=== PATIENT | female | born 1985 | race Caucasian/White ===

== ENCOUNTER → 2020-11-19 12:35 | Outpatient (CLI) | payer OTHER, SELFPAY ==
--- NOTE | 2020-11-19 12:37 | DI.RAD.S_ITS ---
PROCEDURE: HL HYSTEROSAPINGOGRAPHY INDICATIONS: Infertility COMPARISON: None. FINDINGS: Patient had a documented negative test prior to the study. Following speculum insertion, a balloon-tip catheter was inserted into the cervical canal, and secured by inflating the balloon. Contrast was then injected into the endometrial canal. Uterus: The uterine cavity appears normal in size and morphology, without synechiae or masses. Fallopian tubes: Both fallopian tubes fill with contrast, and appear normal in caliber and morphology. There is ready dispersion of contrast into the peritoneal cavity from the right fallopian tube. There is a small amount of eventual dispersion of contrast into the peritoneal cavity from the left fallopian tube. IMPRESSION: Fallopian tubes appear patent bilaterally as above. Dictated by: Braxton Mart M.D. on 11/19/2020 at 15:30 Approved by: Braxton Mart M.D. on 11/19/2020 at 15:32
--- NOTE | 2020-12-04 16:04 | PM.PROC.1 ---
Procedures Date/Time Date of procedure: 11/19/20 Time of procedure: 13:15 General Procedure description: Hysterosalpingogram After informed consent was obtained, the patient was placed on an overturned bedpan covered with a checks. An open-sided speculum was placed into the vagina. The cervix was cleaned x3 with Betadine. A single-tooth tenaculum was placed on the anterior lip of the cervix. The HSG catheter passed easily into the endometrial cavity and the balloon was inflated with 3 cc of air. Using Optiray 300, approximately 18 cc were injected under direct fluoroscopic examination. The contours of the uterus were normal. There was spill from both fallopian tubes. The Optiray 300 was aspirated from the uterus. The balloon was deflated and the HSG catheter was removed from the uterus. The single-tooth tenaculum was removed from the anterior lip of the cervix. The open sided speculum was removed from the vagina. The patient was taken off of the bed lopez. Sponge, lap, and instrument counts were correct x2. The patient tolerated the procedure well. Complications: none
== END ==
PROVIDERS: PCP Naturopath; Referring Provider Obstetrics & Gynecology; Visit Provider Obstetrics & Gynecology
DX: N97.9 Female infertility, unspecified (principal)
CPT/HCPCS: 58340; 74740

== ENCOUNTER → 2021-11-26 10:13 | Outpatient (CLI) | payer OTHER, SELFPAY ==
[2021-11-26 11:05] LABS: Add Manual Diff / Slide Review NO; Basophils Absolute Auto 0 /uL (0-100); Basophils Percent Auto 0.3 % (0-2); Eosinophils Absolute Auto 0 /uL (0-450); Eosinophils Percent Auto 0.3 % (2-4); Hematocrit 39.2 % (36-46); Hemoglobin 13.4 g/dL (12.0-16.0); Lymphocytes Absolute Auto 1900 /uL (1100-4500); Lymphocytes Percent Auto 27.3 % (25-40); Mean Corpuscular HGB Conc 34.2 % (30-36); Mean Corpuscular Hemoglobin 28.9 PG (26-34); Mean Corpuscular Volume 84.5 fL (80-100); Monocytes Absolute Auto 500 /uL (0-900); Monocytes Percent Auto 6.4 % (3-14); Neutrophils Absolute Auto 4600 /uL (1500-7000); Neutrophils Percent Auto 65.7 % (50-75); Platelet Count 211 X10^3/uL (150-400); Red Blood Cell Count 4.64 X10^6/uL (4.0-5.2); Red Cell Distribution Width 13.6 % (11.6-14.8)
[2021-11-26 11:13] LABS: Appearance Urine UA CLEAR; Bilirubin Urine UA NEGATIVE (NEGATIVE); Color Urine UA YELLOW; Glucose Urine UA NEGATIVE (Negative); Ketones Urine UA NEGATIVE (NEGATIVE); Leukocyte Esterase Urine UA NEGATIVE (NEGATIVE); Nitrite Urine UA NEGATIVE (Negative); Occult Blood Urine UA NEGATIVE (Negative); Protein Urine UA NEGATIVE (Negative); Urobilinogen Urine UA 0.2 E.U./dL (0.2)
[2021-11-26 11:37] LABS: pH Urine UA 7.5 (4.5-8.0)
[2021-11-27 10:28] LABS: RPR Screen Non Reactive (Non Reactive)
[2021-11-28 08:24] LABS: Varicella IgG Antibody 618 index (Immune >165)
[2021-11-29 16:54] LABS: Hepatitis B Surface Antigen NEGATIVE s/c (NEGATIVE); Rubella Antibody IgG 63.5 IU/mL (>15)
[2021-11-29 17:09] LABS: HIV 1 & 2 Ab/Ag 4th Gen Combo NEGATIVE (NEGATIVE); Hep C Virus Ab w/Reflex Quant NEGATIVE s/c (NEGATIVE)
== END ==
PROVIDERS: PCP Naturopath; Referring Provider Obstetrics & Gynecology; Visit Provider Obstetrics & Gynecology
DX: O09.511 Supervision of elderly primigravida, first trimester (principal)
CPT/HCPCS: 36415; 80055; 81003; 86787; 86803; 86850; 86900; 86901; 87086; 87389

== ENCOUNTER → 2021-12-22 16:53 | Outpatient (CLI) | payer OTHER, SELFPAY ==
[2021-12-23 00:23] LABS: Urine N gonorrhoeae NOT DETECTED
[2021-12-23 00:28] LABS: Urine Chlamydia NOT DETECTED
== END ==
PROVIDERS: PCP Naturopath; Visit Provider Obstetrics & Gynecology
DX: Z34.81 Encounter for supervision of other normal pregnancy, first trimester (principal); Z3A.13 13 weeks gestation of pregnancy
CPT/HCPCS: 87491; 87591

== ENCOUNTER → 2022-01-17 16:42 | Outpatient (CLI) | payer OTHER, SELFPAY ==
[2022-01-18 20:35] LABS: AFP Value 27.1 ng/mL (.); Gest Age on Col Date 17.4 weeks (.); Insulin Dep Diabetes No (.); OSBR Risk 1IN 10000 (.); Results Report (.); Test Results *Screen Negative* (.)
== END ==
PROVIDERS: PCP Naturopath; Referring Provider Obstetrics & Gynecology; Visit Provider Obstetrics & Gynecology
DX: Z34.82 Encounter for supervision of other normal pregnancy, second trimester (principal); Z3A.17 17 weeks gestation of pregnancy
CPT/HCPCS: 36415; 82105

== ENCOUNTER → 2022-02-07 15:00 | Outpatient (CLI) | payer OTHER, SELFPAY ==
--- NOTE | 2022-02-07 15:01 | DI.US.S_ITS ---
PROCEDURE: US OB >= 14 WEEKS FETUS INDICATIONS: ANATOMY OUTSIDE/PRIOR DATING DATA: Last menstrual period (LMP): 09/17/2021 LMP-based estimated date of delivery (JASMINA): 06/24/2022. First dating scan (date and location): 11/22/2021. Estimated date of delivery (JASMINA) from first dating scan: 06/24/2022. TECHNIQUE: Real-time scanning was performed of the fetus, with image documentation and biometric measurements. COMPARISON: [facility], , OB <= 14 WEEKS FETUS, 11/22/2021, 15:02. [facility], , OB <= 14 WEEKS FETUS, 12/22/2021, 16:29. FINDINGS: General: A single living intrauterine gestation is present. Presentation: Variable. Placenta: Placental position is anterior , without previa. Amniotic fluid index: 20 cm, normal range is 5-24 cm. Single deepest vertical pocket is 6.2 cm. heart rate: 157 beats per minute. Maternal cervical canal: 3.4 cm long. Normal lower limit is 2.5 cm. biometrics: Biparietal diameter: 21 weeks 1 day Head circumference: 20 weeks 0 days Abdominal circumference: 21 weeks 0 days Femur length: 21 weeks 0 days Clinically estimated gestational age: 20 weeks 3 days Composite gestational age from present scan: 20 weeks 6 days Estimated weight and percentile: 385 g; 70 second percentile. Anatomic survey: Neuro: Ventricles are non-dilated at less than 10 mm. Cisterna magna is normal at 3-11 mm. Cerebellum is normal in size and morphology. Nuchal skin fold: Normal at less than 6 mm between 14-21 weeks gestational age. Face: Nose and lips, facial profile are normal. Spine: No evidence for spina bifida. Heart: 4-chambered heart is present, with normal ventricular outflow tracts. Diaphragm: Diaphragm is intact. Stomach: Left-sided stomach is present. Kidneys: Mild bilateral renal pyelectasis with the renal pelvis measuring 4.2 mm. Cord: 3-vessel cord has orthotopic insertion. Bladder: Normal in size. Extremities: All 4 extremities identified. Intramural maternal fibroid measuring 1.9 cm. IMPRESSION: 1. Single living IUP redemonstrated and interval growth is normal. 2. Mild bilateral renal pelviectasis; otherwise normal anatomic survey. Short-term follow-up ultrasound recommended. 2. Small maternal intramural fibroid. We strive to produce accurate, complete, and clear reports of imaging services. To assist us in improving patient care, this report was composed using standard report templates and voice recognition software. Therefore, it may contain abnormal punctuation, insertions and/or omissions. Occasional wrong-word or sound-alike substitutions may occur. Though we review the report and make efforts to correct it, we do recommend that the report be read carefully in proper context to recognize any text inaccuracies. Dictated by: Darren HENNESSY Interpreted: Tootie Connolly MD on 02/08/2022 at 17:01 Transcribed by: LUIS F on 02/08/2022 at 17:03 Approved by: Tootie Connolly M.D. on 02/08/2022 at 17:28
== END ==
PROVIDERS: PCP Naturopath; Referring Provider Obstetrics & Gynecology; Visit Provider Obstetrics & Gynecology
DX: Z34.02 Encounter for supervision of normal first pregnancy, second trimester (principal); Z3A.20 20 weeks gestation of pregnancy; D25.1 Intramural leiomyoma of uterus
CPT/HCPCS: 76811

== ENCOUNTER → 2022-03-08 16:45 | Outpatient (CLI) | payer OTHER, SELFPAY ==
--- NOTE | 2022-03-08 16:46 | DI.US.S_ITS ---
PROCEDURE: US OB FOLLOW UP INDICATIONS: FU mild bilateral renal pelviectasis OUTSIDE/PRIOR DATING DATA: Last menstrual period (LMP): 09/17/2021. LMP-based estimated date of delivery (JASMINA): 06/24/2022. First dating scan (date and location): 11/22/2021. Estimated date of delivery (JASMINA) from first dating scan: 06/24/2022. The calculations are made using the ultrasound JASMINA of 06/24/2022. TECHNIQUE: Real-time scanning was performed of the fetus, with image documentation and biometric measurements. COMPARISON: [facility], , US OB >= 14 WEEKS FETUS, 02/07/2022, 15:42. [facility], , US OB <= 14 WEEKS FETUS, 12/22/2021, 16:29. [facility], , US OB <= 14 WEEKS FETUS, 11/22/2021, 15:02. FINDINGS: General: A single living intrauterine gestation is present. Presentation: Breech. Placenta: Placental position is anterior , without previa. Amniotic fluid index: 20.8 cm, normal range is 5-24 cm. Single deepest vertical pocket is 7.2 cm. heart rate: 153 beats per minute. Maternal cervical canal: 4.3 cm long. Normal lower limit is 2.5 cm. biometrics: Composite gestational age from present scan: 24 weeks 4 days Other: Previous appearance of pelvocaliectasis is not visualized. IMPRESSION: Single live intrauterine with ultrasound gestational age of 24 weeks 4 days. Previous pelvocaliectasis is not visualized. We strive to produce accurate, complete, and clear reports of imaging services. To assist us in improving patient care, this report was composed using standard report templates and voice recognition software. Therefore, it may contain abnormal punctuation, insertions and/or omissions. Occasional wrong-word or sound-alike substitutions may occur. Though we review the report and make efforts to correct it, we do recommend that the report be read carefully in proper context to recognize any text inaccuracies. Dictated by: Tootie Connolly M.D. on 03/09/2022 at 7:08 Approved by: Tootie Connolly M.D. on 03/09/2022 at 7:09
== END ==
PROVIDERS: PCP Naturopath; Referring Provider Obstetrics & Gynecology; Visit Provider Obstetrics & Gynecology
DX: O35.8XX0 Maternal care for other (suspected) fetal abnormality and damage, not applicable or unspecified (principal); Z3A.24 24 weeks gestation of pregnancy
CPT/HCPCS: 76816

== ENCOUNTER → 2022-06-06 09:15 | Outpatient (CLI) | payer BC, SELFPAY ==
[2022-06-07 11:43] LABS: Strep Grp B PCR NEG for Grp B Strep
== END ==
PROVIDERS: PCP Naturopath; Visit Provider Obstetrics & Gynecology
DX: Z34.03 Encounter for supervision of normal first pregnancy, third trimester (principal); Z3A.37 37 weeks gestation of pregnancy
CPT/HCPCS: 87653

== ENCOUNTER 2022-06-18 17:37 | Observation (INO) | payer BC, SELFPAY ==
[2022-06-18 18:33] LABS: Add Manual Diff / Slide Review NO; Basophils Absolute Auto 0 /uL (0-100); Basophils Percent Auto 0.3 % (0-2); Eosinophils Absolute Auto 0 /uL (0-450); Eosinophils Percent Auto 0.3 % (2-4); Hematocrit 41.4 % (36-46); Hemoglobin 13.6 g/dL (12.0-16.0); Lymphocytes Absolute Auto 2100 /uL (1100-4500); Lymphocytes Percent Auto 20.9 % (25-40); Mean Corpuscular HGB Conc 32.9 % (30-36); Mean Corpuscular Hemoglobin 27.8 PG (26-34); Mean Corpuscular Volume 84.3 fL (80-100); Monocytes Absolute Auto 500 /uL (0-900); Monocytes Percent Auto 5.1 % (3-14); Neutrophils Absolute Auto 7500 /uL (1500-7000); Neutrophils Percent Auto 73.4 % (50-75); Platelet Count 217 X10^3/uL (150-400); Red Blood Cell Count 4.91 X10^6/uL (4.0-5.2); Red Cell Distribution Width 16.1 % (11.6-14.8); White Blood Cell Count 10.2 X10^3/uL (4.5-11.0)
[2022-06-18 18:45] LABS: COVID19 -Nasal RAPID Negative (Negative)
[2022-06-18] MEDS: DINOPROSTONE VAG (CERVIDIL) 10 MG VAG (18:54)
[2022-06-18 19:23] VITALS: BP 113/66
[2022-06-19] MEDS: OXYTOCIN PREMIX 30 UNIT/500 ML PLAST..BAG IV (09:45)
[2022-06-19] MEDS: LACTATED RINGERS 1,000 ML 100 ML IV (09:45)
[2022-06-19] MEDS: miSOPROStoL 100 MCG TABLET 25 MCG PO (20:43)
[2022-06-20] MEDS: miSOPROStoL 100 MCG TABLET 25 MCG PO (00:39)
== END 2022-06-20 08:52 | disposition home or self-care (01) ==
PROVIDERS: Admitting Provider Obstetrics & Gynecology; PCP Naturopath; Referring Provider Obstetrics & Gynecology; Visit Provider Obstetrics & Gynecology
DX: O47.1 False labor at or after 37 completed weeks of gestation (principal); O09.513 Supervision of elderly primigravida, third trimester; Z3A.39 39 weeks gestation of pregnancy; Z20.822 Contact with and (suspected) exposure to COVID-19
CPT/HCPCS: 36415; 85025; 86850; 86900; 86901; 87635; C9803; G0378; G0379; J2590

== ENCOUNTER 2022-06-23 02:54 | Observation (INO) | payer BC, OTHER, SELFPAY ==
[2022-06-23] MEDS: MORPHINE 10 MG/ML INJ IM (08:12)
[2022-06-23] MEDS: hydrOXYzine 50 MG/ML INJ 25 MG IM (08:13)
== END 2022-06-23 15:55 | disposition home or self-care (01) ==
PROVIDERS: Admitting Provider Obstetrics & Gynecology; PCP Naturopath; Referring Provider Obstetrics & Gynecology; Visit Provider Obstetrics & Gynecology
DX: O47.1 False labor at or after 37 completed weeks of gestation (principal); Z3A.39 39 weeks gestation of pregnancy
CPT/HCPCS: 59025; 59050; 96372; G0378; G0379; J2270; J3410

== ENCOUNTER 2022-06-24 09:23 | Inpatient (IN) | payer BC, SELFPAY ==
[2022-06-24] MEDS: LACTATED RINGERS 1,000 ML 100 ML IV ×5 (10:10→23:15)
[2022-06-24 10:31] VITALS: BP 133/84
[2022-06-24 10:34] LABS: Add Manual Diff / Slide Review NO; Basophils Absolute Auto 100 /uL (0-100); Basophils Percent Auto 0.5 % (0-2); Eosinophils Absolute Auto 0 /uL (0-450); Eosinophils Percent Auto 0.1 % (2-4); Hematocrit 41.7 % (36-46); Hemoglobin 13.8 g/dL (12.0-16.0); Lymphocytes Absolute Auto 1300 /uL (1100-4500); Lymphocytes Percent Auto 11.5 % (25-40); Mean Corpuscular HGB Conc 33.1 % (30-36); Mean Corpuscular Hemoglobin 27.9 PG (26-34); Monocytes Absolute Auto 300 /uL (0-900); Monocytes Percent Auto 2.6 % (3-14); Neutrophils Absolute Auto 10000 /uL (1500-7000); Neutrophils Percent Auto 85.3 % (50-75); Platelet Count 219 X10^3/uL (150-400); Red Blood Cell Count 4.96 X10^6/uL (4.0-5.2); Red Cell Distribution Width 15.6 % (11.6-14.8); White Blood Cell Count 11.7 X10^3/uL (4.5-11.0)
[2022-06-24] MEDS: fentaNYL 100 MCG/2 ML INJ IV (10:39)
[2022-06-24] MEDS: FENT 2MCG/ML BUPIV 0.125% EPI 200 MCG/100 ML PLAST..BAG 6 MCG EPIDURAL (11:13)
[2022-06-24] MEDS: OXYTOCIN PREMIX 30 UNIT/500 ML PLAST..BAG 200 UNIT IV (14:37)
--- NOTE | 2022-06-24 15:00 | PM.OBHP.IH.1 ---
OB HPI Date/Time Date of admission: 06/24/22 Date Patient Seen: 06/24/22 Time Patient Seen: 11:40 History of Present Condition Chief complaint: Observation JASMINA Calculator Estimated Delivery Date Method Current WG Current Estimate 06/24/22 LMP (Certain) 40w 0d Other Estimates 06/24/22 Ultrasound #1 40w 0d Estimated Gestational Age (weeks): 40 : 1 Para: 0 Narrative: Induced 06/18-06/20 but unsuccessful. Went home. Saw in office 06/22. Planned induction 06/26. Pt presented in active labor this morning. care: good care, initiated at week # (9), number of visits (11) and pounds weight gain (21) Dating criteria OB: LMP confirmed by 1st trimester US Ultrasounds: normal 1st trimester US and normal mid trimester US Obstetrical complications: none Medical complications OB: none Narrative: AMA Preadmission Labs Last OB Lab Results: Blood Type O Positive 06/24/22 10:05 Antibody Screen Negative 06/24/22 10:05 Hematocrit 41.7 % (36-46) 06/24/22 10:05 Hemoglobin 13.8 g/dL (12.0-16.0) 06/24/22 10:05 Hepatitis B Surface Antigen Negative s/c (NEGATIVE) 11/26/21 10:25 Hepatitis C Antibody Negative s/c (NEGATIVE) 11/26/21 10:25 Rubella Antibody 63.5 IU/mL (>15) 11/26/21 10:25 Varicella-Zoster IgG Antibody 618 index (Immune >165) 11/26/21 10:25 Group B Streptococcus (PCR) Neg for grp b strep 06/06/22 09:15 -: Chlamydia screen: negative, Gonorrhea screen: negative and Urine: negative -: PAP smear: Normal External Labs -: Urine: negative Glucose Tolerance Testin hr (92) Evaluation Evaluation Baseline heart rate: 140 Variability: Moderate (11-25) monitor accelerations: Present Monitor Decelerations: Absent Contraction Frequency (minutes): 3 Uterine Contraction Intensity: Strong/Firm Status: Category l Dilation (cm): 7 Effacement (%): 100 station: -2 Position of cervix: anterior Consistency: soft [facility] Medical History (Updated 02/17/22 @ 05:52 by Cynthia Clancy MD) Infertility Surgical History (Updated 11/17/20 @ 12:11 by Cynthia Clancy MD) [place] teeth extracted Family History (Updated 10/27/21 @ 15:42 by Komal Méndez RN) Father Suicide Mother Skin cancer Rheumatoid arthritis Grandfather Cancer Grandmother Skin cancer Rheumatoid arthritis Grandfather Cancer Social History marital status: number of children: 0 household members: spouse lives independently: Yes housing: house pets and animals: Yes (1 cat) education level: college (Associate's degree) occupational status: employed current occupational exposures/hazards: No special bruna needs: No travel history: recent ([place] ([facility]) in September 2021) seatbelt use: always water heater temp set < 120 deg: No (Will check and adjust if needed ) working smoke detector in home: Yes fire extinguisher in home: Yes carbon monox detector in home: Yes firearms in home: Yes firearms unloaded and locked: Yes do you feel safe at home: Yes Smoking Status: Never smoker second hand exposure: No alcohol intake: former (Occasional social drinker when not ) substance use type: does not use during the past year weight has: remained stable well-balanced diet: daily or most days daily servings fruits/ve-4 caffeine: Yes (Aware of 200mg limit) Type(s) of exercise: walking and regular exercise Meds Home Medications and Allergies Home Medications Medication Instructions Recorded Confirmed Type cholecalciferol (vitamin D3) 50 50 mcg PO DAILY 10/27/21 06/24/22 History mcg (2,000 unit) capsule omega-3 fatty acids-fish oil 360 2 cap PO DAILY 10/27/21 06/24/22 History mg-1,200 mg capsule (Fish Oil) prenat.vits,natty,buv-tzxa-aiznj 1 tab PO DAILY 10/27/21 06/24/22 History Allergies Allergy/AdvReac Type Severity Reaction Status Date / Time No Known Drug Allergies Allergy Verified 06/22/22 16:16 OB Exam Narrative Exam Narrative: Generally: Patient lying in bed, comfortable with epidural Lungs: Clear to auscultation bilaterally Cardiovascular: Regular rate and rhythm Fundal height: 40 cm Estimated weight: 7 1/2 to 8 lbs Extremities: Trace edema Objective Labs 06/24/22 10:05 Labs: Laboratory Results - last 24 hr 06/24/22 06/24/22 10:05 10:05 WBC 11.7 H RBC 4.96 Hgb 13.8 Hct 41.7 MCV 84.0 MCH 27.9 MCHC 33.1 RDW 15.6 H Plt Count 219 Neut % (Auto) 85.3 H Lymph % (Auto) 11.5 L [place]ke[place] % (Auto) 2.6 L Eos % (Auto) 0.1 L Baso % (Auto) 0.5 Neut # (Auto) 45847 H Lymph # (Auto) 1300 [place] # (Auto) 300 Eos # (Auto) 0 Baso # (Auto) 100 Blood Type O Positive Antibody Screen Negative Assessment and Plan Assessment and Plan Assessment and Plan narrative: Assessment: 36-year-old 1 para 0 at 40 weeks gestation in active labor Plan: AROM with thin meconium-stained amniotic fluid Expected management to spontaneous vaginal delivery Pitocin as needed Time Spent with Patient Total time spent with greater than 50% in coordination of care (as documented) at patient's floor/unit and/or counseling patient:: 15-24 minutes
--- NOTE | 2022-06-24 15:07 | PM.OBPNLAB ---
Date/Time Date Patient Seen: 06/24/22 Time Patient Seen: 15:08 Pain Control Pain control: epidural Pelvic Exam Dilation (cm): 7 Effacement (%): 100 station: -1 (asynclitic) Amniotic membrane status: Ruptured Contractions Contractions on admission: regular Monitor mode: External Contraction frequency (min): 4 Contraction duration (min): 1 Contraction pattern: Regular Contraction intensity: Strong/Firm Status status: Category l Heart Rate Baseline: 145 Monitor Accelerations: Present Monitor Decelerations: Early Monitor Variability: Moderate Assessment and Plan Assessment: active labor Comments: Side to side with peanut ball Pitocin augmentation Expectant management to
--- NOTE | 2022-06-24 16:05 | PM.OBPNLAB ---
Date/Time Date Patient Seen: 06/24/22 Time Patient Seen: 16:06 Pain Control Pain control: epidural (feeling a lot of pressure) Pelvic Exam Dilation (cm): 6 Effacement (%): 100 station: 0 (asynclitic) Amniotic membrane status: Ruptured Contractions Contractions on admission: regular Monitor mode: External Pitocin rate (mU/min): 1 Contraction frequency (min): 3 Contraction duration (min): 1 Contraction pattern: Regular Contraction intensity: Strong/Firm Status status: Category l Heart Rate Baseline: 150 Monitor Accelerations: Present Monitor Decelerations: Absent Monitor Variability: Moderate Assessment and Plan Assessment: active labor Comments: Continue side to side with peanut ball Anesthesia to bolus epidural
--- NOTE | 2022-06-24 19:42 | PM.OBPNLAB ---
Date/Time Date Patient Seen: 06/24/22 Time Patient Seen: 19:42 Pain Control Pain control: epidural (Feeling pressure) Comments: Called due to maternal fever and tachycardia Pelvic Exam Dilation (cm): 9 Effacement (%): 100 station: -1 Amniotic membrane status: Ruptured Contractions Contractions on admission: regular Monitor mode: External Pitocin rate (mU/min): 3 Contraction frequency (min): 3 Contraction pattern: Regular Contraction intensity: Strong/Firm Status status: Category ll Heart Rate Baseline: 176 Monitor Accelerations: Present Monitor Decelerations: Early and Late (occ) Monitor Variability: Moderate Assessment and Plan Assessment: active labor and other (maternal fever and tachycardia) Comments: Primary section Discussed with patient and her that we could be 3-5 hours from delivery due to vertex still being high We discussed the risks of maternal fever and tachycardia The decision was made to proceed to primary low-transverse section. The risks, benefits, and alternatives to the procedure were explained to the patient. The risks including bleeding, infection, injury to the bowel, bladder, or ureters. She understands these risks and agrees to proceed. A full par Q was held and consent form was signed. Pediatrics notified OR crew called
--- NOTE | 2022-06-24 19:45 | PM.PREOP ---
Pre-operative Note COVID-19 Criteria for continued procedure: Non-surgical alternatives not available or appropriate per current SOC Interval Note History & Physical reviewed/Exam performed by Physician: Yes Changes to H&P: No H&P completed within 30 days and has changed as indicated here:: 06/24/22
[2022-06-24] MEDS: CEFAZOLIN 2 GM/100 ML PREMIX 100 ML IV (20:27)
--- NOTE | 2022-06-24 20:41 | SUR.OPER ---
Supine on Padded OR bed, head on pillow, safety belt at thigh, arms secured on padded arm boards at <90 degrees abduction. Bump under right buttock. Legs uncrossed with pillow under knees, gel pad to heels, tape over blanket to lower legs. pt positioned per direction and supervision of Dr Clancy.
--- NOTE | 2022-06-24 20:48 | SUR.OPER ---
viable baby girl delivered at 2046. placenta and cord blood given to OB RN.
--- NOTE | 2022-06-24 21:28 | P.OP_ITS ---
Operative Date/Time/Diagnoses Date of procedure: 06/24/22 Time of procedure: 21:28 Pre-op diagnosis: Forty weeks gestation Maternal fever in labor Vertex high, remote from delivery tachycardia Post-op diagnosis: same Procedure & Clinicians Procedure: Primary low-transverse section Same procedure as scheduled: Yes Indications: 40 weeks gestation Vertex high tachycardia Maternal fever in labor Remote from delivery Surgeon: Cynthia Bal Yes if Unassisted: No Mainframe Applications Developer: Nathalia Dsouza Reason for Mainframe Applications Developer: The administrative assistant office manager was necessary to retract upon entry into the abdomen and uterus. She assisted with fundal pressure for delivery of the . She assisted with closure of the uterus and abdomen with retraction and clipping of suture. She closed the contralateral fascia. Anesthesia Type: Epidural (With Duramorph) Operative Notes Findings: Live female in the direct occiput posterior presentation Normal uterus, tubes, and ovaries Closure Type: primary Specimen(s): cord blood and cord pH (7.217 ) Intraoperative meds administered: Duramorph, Ketorolac and Pitocin Applied: Catheter (To continuous drainage) Estimated Blood Loss (mL): 500 Blood products transfused: none Procedure in detail: The patient was taken to the operating room where she was placed in the dorsal supine position with a leftward tilt. She was prepped and draped in the usual sterile fashion. A timeout was performed. After epidural analgesia was found to be adequate, a Pfannenstiel skin incision was made 2 fingerbreadths above the pubic symphysis and carried through to the underlying layer fascia. The fascia was nicked in the midline, and the incision extended bilaterally with the Ellsworth scissors. The superior aspect of the fascial incision was grasped with a Adriana clamps, elevated, and the underlying rectus muscles dissected off sharply and bluntly. Attention was then turned to the inferior aspect of this incision which in a similar fashion was grasped with a Adriana clamps, elevated, and the underlying rectus muscles dissected off sharply and bluntly. The rectus muscles were in the midline. The peritoneum was identified, grasped between 2 hemostats, and entered sharply with the Metzenbaum scissors. This incision was extended superiorly and inferiorly with good visualization of the bladder. The bladder blade was inserted. The vesicouterine peritoneum was identified, grasped with the pickup, and entered sharply with the Metzenbaum scissors. This incision was extended bilaterally, and the bladder flap was created digitally. The bladder blade was reinserted. The lower uterine segment was incised in a transverse fashion with the scalpel. Upon entering the amniotic sac there was a small amount of lightly meconium stained amniotic fluid. The was found to be in the direct occiput posterior presentation. The 's head was delivered without difficulty. The nose and mouth were suctioned with bulb suction. The remainder of the body delivered without difficulty. The cord was double clamped and cut after 1 minute. A piece of cord for cord pH was o btained. The infant was handed off to waiting RN and RT. Pitocin was given in the IV fluids. The placenta was delivered by expression. The uterus was cleared of all clots and debris. The uterine incision was repaired with #1 chromic in a running interlocking fashion, and a second layer the same suture was used for an imbricating layer. Hemostasis was achieved. The tubes and ovaries were examined and were found to be normal. The gutters were cleared of all clots and debris. The bladder flap was reapproximated using 2-0 Vicryl in a running fashion. The parietal peritoneum was closed using 2-0 Vicryl in a running fashion. The fascia was reapproximated using 0 Vicryl in a running fashion. The subcutaneous layer was copiously irrigated with warm normal saline. 5 simple interrupted sutures of 3-0 Vicryl were placed to reapproximate the subcutaneous layer. The skin was closed with 4-0 Monocryl in a subcuticular fashion. Steri-Strips were placed. An Aquacel dressing was placed. The uterus was expressed of a small amount of old blood. Sponge, lap, and instrument counts were correct x-2. The patient tolerated the procedure well, and was taken to PACU in stable condition. Complications: none Baby 1: Gender: Female Presentation: vertex Position: Occiput Posterior Placental Delivery Description: Expressed Cord Vessel Description: 3 Vessels and Clamped/Cut (After 1 minute) score (1 min): 8 score (5 min): 9 weight: 7 lb 15.1 oz Post-operative Condition: stable Disposition: PACU Aftercare: routine postop
[2022-06-24 21:30] VITALS: BP 125/47; PULSE 81; RESP 16; TEMP 36.9; O2SAT 98
[2022-06-24 21:35] VITALS: BP 130/67; PULSE 83; RESP 20; O2SAT 96
--- NOTE | 2022-06-24 21:37 | SUR.PHASEI ---
Received to PACU after spinal anesthesia. Report from Dr Wood and PATRICIA Lynn.
[2022-06-24 21:39] VITALS: BP 119/65; PULSE 86; RESP 18; O2SAT 97
[2022-06-24 21:45] VITALS: BP 114/64; PULSE 97; RESP 16; O2SAT 96
--- NOTE | 2022-06-24 21:52 | SUR.PHASEI ---
Report called to PATRICIA Michele. Transported to OB by PATRICIA Lynn and AMI James.
[2022-06-24 23:55] VITALS: TEMP 37.3
[2022-06-24] MEDS: ACETAMINOPHEN 325 MG TABLET 650 MG PO (23:55)
[2022-06-25 03:28] VITALS: TEMP 37.1
[2022-06-25] MEDS: KETOROLAC 30 MG/ML VIAL IV (03:28)
[2022-06-25 05:17] VITALS: TEMP 36.9
[2022-06-25] MEDS: OXYCODONE IR 5 MG TABLET PO ×4 (05:17→21:58)
[2022-06-25] MEDS: LANOLIN OINT 7 GM 1 APPLIC TOP (05:18)
[2022-06-25] MEDS: ACETAMINOPHEN 325 MG TABLET 650 MG PO ×3 (06:50→19:58)
[2022-06-25] MEDS: PRENATAL VIT,CALC/IRON/FOLIC 1 TABLET 1 TAB PO (09:33)
[2022-06-25] MEDS: DOCUSATE 100 MG CAPSULE PO (09:33)
[2022-06-25 09:34] VITALS: TEMP 37.1
[2022-06-25] MEDS: IBUPROFEN 600 MG TABLET PO ×3 (09:34→21:58)
[2022-06-25 09:47] LABS: Add Manual Diff / Slide Review NO; Basophils Absolute Auto 100 /uL (0-100); Basophils Percent Auto 0.6 % (0-2); Eosinophils Absolute Auto 0 /uL (0-450); Eosinophils Percent Auto 0.3 % (2-4); Hematocrit 33.3 % (36-46); Hemoglobin 11.1 g/dL (12.0-16.0); Lymphocytes Absolute Auto 2400 /uL (1100-4500); Lymphocytes Percent Auto 19.2 % (25-40); Mean Corpuscular HGB Conc 33.5 % (30-36); Mean Corpuscular Volume 83.6 fL (80-100); Monocytes Absolute Auto 800 /uL (0-900); Monocytes Percent Auto 6.5 % (3-14); Neutrophils Absolute Auto 9000 /uL (1500-7000); Neutrophils Percent Auto 73.4 % (50-75); Platelet Count 187 X10^3/uL (150-400); Red Blood Cell Count 3.98 X10^6/uL (4.0-5.2); Red Cell Distribution Width 15.5 % (11.6-14.8); White Blood Cell Count 12.2 X10^3/uL (4.5-11.0)
--- NOTE | 2022-06-25 14:01 | PM.OBPN.1 ---
Subjective - OB Subjective Patient comments: no complaints, pain well controlled and tolerating diet baby status: doing well and nursing well feeding status: exclusively breast feeding Date Patient Seen: 06/25/22 Time Patient Seen: 12:50 Interval history: Patient is a 36-year-old 1 para 1 postop day # 0-1 status post primary low-transverse section. Patient has voided without the catheter. Pain is well controlled. She is tolerating a diet. is going well. Her bleeding is tapering. Exam Vital Signs (past 8 hours): - 06/25/22 09:34 Temperature 98.8 F Oxygen Delivery Method Room Air Narrative Exam Narrative: Generally: Patient is sitting up in bed, no acute distress Lungs: Clear to auscultation bilaterally Cardiovascular: Regular rate and rhythm Fundus: Firm at U Incision: Clean dry and intact with Aquacel dressing Extremities: Trace edema Objective Labs 06/25/22 09:30 Labs: Laboratory Results - last 24 hr 06/25/22 09:30 WBC 12.2 H RBC 3.98 L Hgb 11.1 L Hct 33.3 L MCV 83.6 MCH 28.0 MCHC 33.5 RDW 15.5 H Plt Count 187 Neut % (Auto) 73.4 Lymph % (Auto) 19.2 L [place] % (Auto) 6.5 Eos % (Auto) 0.3 L Baso % (Auto) 0.6 Neut # (Auto) 9000 H Lymph # (Auto) 2400 [place] # (Auto) 800 Eos # (Auto) 0 Baso # (Auto) 100 Assessment & Plan Plan day: 1 plan OB: routine postop care Comments: Possible discharge June 26, 2022 Time Spent With Patient Time: Total time spent is greater than 50% in coordination of care (as documented) at patient's floor/unit and/or counseling patient: Time with patient: 15-24 minutes
[2022-06-25 19:58] VITALS: TEMP 36.9
[2022-06-25 21:58] VITALS: TEMP 36.6
[2022-06-26 01:54] VITALS: TEMP 36.8
[2022-06-26] MEDS: ACETAMINOPHEN 325 MG TABLET 650 MG PO ×2 (01:54→10:39)
[2022-06-26 05:37] VITALS: TEMP 36.8
[2022-06-26] MEDS: IBUPROFEN 600 MG TABLET PO ×2 (05:37→12:00)
[2022-06-26 09:46] LABS: Appearance Urine UA CLEAR; Bilirubin Urine UA NEGATIVE (NEGATIVE); Color Urine UA YELLOW; Glucose Urine UA NEGATIVE (Negative); Ketones Urine UA 1+ (NEGATIVE); Leukocyte Esterase Urine UA NEGATIVE (NEGATIVE); Nitrite Urine UA NEGATIVE (Negative); Occult Blood Urine UA 3+ (Negative); Protein Urine UA NEGATIVE (Negative); Urobilinogen Urine UA 0.2 E.U./dL (0.2)
[2022-06-26 10:12] LABS: RBC Urine 10-30/HPF (0-5/HPF)
[2022-06-26 10:13] LABS: Amorphous Sediment Urine 1+; Bacteria Urine Few (2-10); Culture Indicated Urine Cult Not Indicated; Squamous Epithelial Cell Urine 1-5 /HPF (0-5/HPF); WBC Urine 1-5/HPF (0-5/HPF)
[2022-06-26] MEDS: OXYCODONE IR 5 MG TABLET PO (10:20)
[2022-06-26] MEDS: LANOLIN OINT 7 GM 1 APPLIC TOP (10:38)
[2022-06-26] MEDS: DOCUSATE 100 MG CAPSULE PO (10:39)
[2022-06-26] MEDS: PRENATAL VIT,CALC/IRON/FOLIC 1 TABLET 1 TAB PO (10:40)
--- NOTE | 2022-08-18 12:31 | PM.OBDS.1 ---
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 This was on June 24, 2022. She had artificial rupture of membranes with thin meconium-stained amniotic fluid. She received an epidural for pain management. At 3:10 p.m. she was 7 cm/100% -1 station. Baby was asynclitic. She had position changes and was using a peanut ball. At 4:05 p.m. she received an epidural bolus for inadequate pain control. At 7:42 p.m. she had progressed to 9 cm/100% effaced/-1 station. Mom developed a fever and baby became tachycardic. The decision was made to proceed to a primary low-transverse section. She underwent this procedure without complication. Her postoperative course was unremarkable. She was discharged home on June 26, 2022. She was able to void without the catheter. Pain was well controlled. She was ambulating without assistance. She was tolerating a diet. Peripartum Data Infant Delivery Method: Section Procedures: Artificial rupture of membranes Epidural analgesia Pitocin augmentation of labor Primary low-transverse section complications: none 1: Gender: Female Disposition of : home Status at Discharge Cognitive/behavioral status at discharge: oriented Functional status at discharge: independent ambulation Overall status at discharge: patient is progressing back to baseline Time Spent with Patient Time attestation: Total time spent providing and/or coordinating discharge services: Time spent: Less than 30 minutes Objective Labs 06/25/22 09:30 Exam Vital Signs (past 8 hours): Oxygen Delivery Method Room Air Narrative Exam Narrative: Generally: Patient is sitting up in bed, holding infant, no acute distress Lungs: Clear to auscultation bilaterally Cardiovascular: Regular rate and rhythm Fundus: Firm at U Incision: Clean dry and intact with Aquacel dressing Extremities: Trace edema, negative Homans Discharge Plan Discharge Plan Patient Disposition: Home Provider Discharge Comment: Call with fever, chills, redness or drainage around the incision, or bleeding vaginally more than a pad in an hour Tylenol 650 mg every 6 hours as needed Ibuprofen 600 mg every 6 hours as needed Stool softeners as needed Nursing Discharge Comment: Next dose of Tylenol not before 0430pm 2/6 Next dose of ibuprofen not before 0530pm 2/6 (600mg ibuprofen every 6hours) Discharge orders & Medications Prescriptions: Continued prenat.vits,natty,zkm-mfwh-gjcte Tablet 1 tab PO DAILY cholecalciferol (vitamin D3) 50 mcg (2,000 unit) capsule 50 mcg PO DAILY omega-3 fatty acids-fish oil [Fish Oil] 360-1,200 mg capsule 2 cap PO DAILY Follow up/Referrals: Cynthia Clancy MD [Physician] - (Apt @0845 August 03 @0098) Diet/Activity/Treatments Diet: Regular Activity: No heavy lifting Skin/Wound/Dressing Care Report to your healthcare provider any signs of infection, such as:: chills, fever, increased pain, unusual drainage and unusual redness Dressing: Do not remove Visit Report/Discharge Packet Instructions: DI for Prescription Opioid Use Stand Alone Forms: Discharge: Care, Patient Portal/API, Stroke Signs & Symptoms Discharge Data Primary Care Provider: Priscila Morgan Discharges patient from system. Discharge Date/Time: 06/26/22 15:50
== END 2022-06-26 15:50 | disposition home or self-care (01) | DRG 787 ==
PROVIDERS: Admitting Provider Obstetrics & Gynecology; PCP Naturopath; Referring Provider Obstetrics & Gynecology; Visit Provider Obstetrics & Gynecology
PROC: 10D00Z1 Extraction of Products of Conception, Low, Open Approach (ICD-10-PCS; CPT 59514; principal; 2022-06-24 20:30)
DX: O75.2 Pyrexia during labor, not elsewhere classified (principal); O47.1 False labor at or after 37 completed weeks of gestation; O76 Abnormality in fetal heart rate and rhythm complicating labor and delivery; Z3A.40 40 weeks gestation of pregnancy; Z37.0 Single live birth
CPT/HCPCS: 36415; 59025; 59050; 59514; 59515; 81001; 85025; 86850; 86900; 86901; 87070; 87075; 87205; 96372; G0378; G0379; J0690; J1885; J2270; J2274; J2590; J3010; J3410

== ENCOUNTER → 2023-04-24 16:04 | Outpatient (CLI) | payer BC, SELFPAY ==
[2023-04-24 17:38] LABS: HCG Quantitative /Beta subunit 3473.6 mIU/mL
[2023-04-24 20:03] LABS: Urine N gonorrhoeae NOT DETECTED
[2023-04-24 20:15] LABS: Urine Chlamydia NOT DETECTED
== END ==
PROVIDERS: Referring Provider Obstetrics & Gynecology; Visit Provider Obstetrics & Gynecology
DX: Z34.90 Encounter for supervision of normal pregnancy, unspecified, unspecified trimester (principal); Z34.81 Encounter for supervision of other normal pregnancy, first trimester; Z3A.08 8 weeks gestation of pregnancy
CPT/HCPCS: 36415; 84702; 87491; 87591

== ENCOUNTER → 2023-04-26 09:08 | Outpatient (CLI) | payer BC, SELFPAY ==
[2023-04-26 10:55] LABS: HCG Quantitative /Beta subunit 3170.3 mIU/mL
== END ==
PROVIDERS: Referring Provider Obstetrics & Gynecology; Visit Provider Obstetrics & Gynecology
DX: R79.89 Other specified abnormal findings of blood chemistry (principal)
CPT/HCPCS: 36415; 84702

== ENCOUNTER 2023-04-27 11:00 | Day surgery (SDC) | payer BC, SELFPAY ==
--- NOTE | 2023-04-27 | PATH_ITS ---
[facility] Accession Number: [id number] No. of containers..01 Tissue . 01 Material submitted: . product of conception - PRODUCTS OF CONCEPTION . 01 Diagnosis: Uterine Contents: Rare immature chorionic villi, gestational endometrium, and decidua. Negative for changes diagnostic of gestational trophoblastic disease. MRV 05/08/2023 1811 Local . 01 Electronically signed: . Janie More MD, Pathologist NPI- [id number] . 01 Gross description: . The specimen is received in formalin, labeled with the patient's name, , and products of conception, and consists of multiple rincon, spongy to membranous soft tissue fragments admixed with hemorrhagic material aggregating to 6.4 x 5.9 x 1.6 cm. No tissue is identified. Insulation Cutter sections are submitted in cassettes A1-A2. ([id number]) /FRR 04/28/2023 1538 Local . 01 Pathologist provided ICD-10: O02.1 . 01 CPT . 877578 Specimen Comment: A courtesy copy of this report has been sent to [phone] Performed at: 01 [facility] [address] [place] [address], [place], [place] [id number] MD Zoran Andersen MD Phone: [phone]
[2023-04-27] MEDS: LACTATED RINGERS 1,000 ML 21 ML IV (11:19)
[2023-04-27 11:23] VITALS: BMI 29.8
[2023-04-27 11:33] VITALS: BP 121/74; PULSE 60; RESP 20; TEMP 37.3; O2SAT 99
--- NOTE | 2023-04-27 12:26 | PM.GYNHP.1 ---
History of Present Illness History of Present Illness Reason for admission: missed Narrative: Daylin Garrett is a 37 year old female 2 para 1 with a missed at 6 weeks' gestation. Beta hCG levels dropping. [facility] Medical History (Updated 03/30/23 @ 11:07 by Komal Méndez, RN) Pelviectasis, renal Delivery by section using transverse incision of lower segment of uterus (~06/24/22) Infertility Surgical History (Updated 03/30/23 @ 11:07 by Komal Méndez, RN) Previous section Villanueva teeth extracted Family History (Updated 03/30/23 @ 11:09 by Komal Méndez RN) Father Suicide Mother Skin cancer Rheumatoid arthritis Grandfather Liver cancer Hepatitis C Grandmother Skin cancer Rheumatoid arthritis Grandfather Cancer Social History marital status: number of children: 1 household members: spouse and children lives independently: Yes housing: house pets and animals: Yes (1 cat) education level: college (Associate's degree) occupational status: previously employed current occupational exposures/hazards: No special bruna needs: No travel history: recent (Will be going to [place] and [place]) seatbelt use: always water heater temp set < 120 deg: Yes working smoke detector in home: Yes fire extinguisher in home: Yes carbon monox detector in home: Yes firearms in home: Yes firearms unloaded and locked: Yes do you feel safe at home: Yes Smoking Status: Never smoker second hand exposure: No alcohol intake: former substance use type: does not use during the past year weight has: other (daughter ~9 months old, not back to pre-baby weight yet) well-balanced diet: daily or most days daily servings fruits/ve-4 caffeine: Yes (1 cup coffee in AM) Type(s) of exercise: walking and regular exercise frequency: daily Meds Home Medications and Allergies Home Medications Medication Instructions Recorded Confirmed Type cholecalciferol (vitamin D3) 50 50 mcg PO DAILY 10/27/21 04/27/23 History mcg (2,000 unit) capsule omega-3 fatty acids-fish oil 360 2 cap PO DAILY 10/27/21 04/27/23 History mg-1,200 mg capsule (Fish Oil) prenat.vits,natty,tdu-zpzd-fdizc 1 tab PO DAILY 10/27/21 04/27/23 History progesterone micronized 200 mg 200 mg PO BEDTIME #30 caps 03/26/23 04/27/23 Rx capsule L.acidophilus-B.animalis-B.bifidum cap PO 03/30/23 04/24/23 History 25 billion cell-FOS 100 mg capsule (Probiotic Complex) loratadine 10 mg tablet 10 mg PO DAILY PRN allergies 03/30/23 04/27/23 History Allergies Allergy/AdvReac Type Severity Reaction Status Date / Time No Known Drug Allergies Allergy Verified 04/27/23 11:21 Exam Vital Signs (past 8 hours): - 04/27/23 11:33 Temperature 99.1 F Pulse Rate 60 Respiratory Rate 20 Blood Pressure 121/74 Pulse Oximetry 99 Oxygen Delivery Method Room Air Oxygen Delivery Method Room Air Narrative Exam Narrative: HEENT: No thyromegaly, no anterior cervical or supraclavicular lymphadenopathy. Lungs:Clear to auscultation bilaterally, no wheezes. Cardiovascular: Regular rate and rhythm, no murmurs, rubs, or gallops. Abdomen: Well-healed scars. No hepatosplenomegaly. No masses palpable. External genitalia: Normal Vagina: Normal Cervix: Normal Bimanual exam: [6 Week size anteverted uterus. Mobile.] Extremities: No edema Assessment & Plan Assessment & Plan narrative: Assessment: 37-year-old 2 para 1 with a missed at 6 weeks' gestation Beta HCG levels dropping Blood type O positive Plan: Suction D&C The risks, benefits, and alternatives to the procedure were explained to the patient. The risks including bleeding, infection, and uterine perforation. She understands these risks and agrees to proceed. A full par Q was held and consent form was signed. Time Spent With Patient Time with patient: less than 30 minutes
--- NOTE | 2023-04-27 12:30 | PM.PREOP ---
Pre-operative Note Interval Note History & Physical reviewed/Exam performed by Physician: Yes Changes to H&P: No H&P completed within 30 days and has changed as indicated here:: 04/27/23
--- NOTE | 2023-04-27 13:01 | SUR.OPER ---
Lithotomy on padded OR bed, head on pillow, arms secured on padded arm boards at <90 degrees abduction. Legs secured in padded yellow fins stirrups.
--- NOTE | 2023-04-27 13:06 | PM.GYNOP.1 ---
Operative Date/Time/Diagnoses Date of procedure: 04/27/23 Time of procedure: 13:07 Pre-op diagnosis: Missed Post-op diagnosis: same Procedure & Clinicians Procedure: Procedures Operation Date: 04/27/23 12:15 Actual Procedure Side Surgeon p suction Dilation and Curettage Cynthia Clancy MD Indications: 37 year old with a missed at 6 wks gestation Surgeon: Cynthia Clancy Anesthesia Type: General (LMA) Operative Notes Findings: Six week size anteverted uterus Large amount of products of conception Closure Type: not applicable Specimen(s): products of conception Estimated blood loss (mL): 100 Blood products transfused: none Procedure in detail: After informed consent was obtained, the patient was taken to the operating room where she was placed in the dorsal supine position. After adequate LMA general anesthesia was achieved, she was placed in the dorsal lithotomy position, and prepped and draped in the usual sterile fashion. A time-out was performed. A bivalve speculum was placed into the vagina and the anterior lip of the cervix was grasped with a single-tooth tenaculum. The cervical os was sequentially dilated until the # 6 curved plastic curette passed easily into the endometrial cavity. Several passes with suction revealed a large amount of tissue and fluid. The suction curette was removed. Gentle sharp curettage was performed yielding a moderate amount of tissue. Several more passes with suction revealed blood only. The instruments were removed from the uterus. The single-tooth tenaculum was removed from the anterior lip of the cervix. The bivalve speculum was removed from the vagina. Sponge, lap, and instrument counts were correct x2. The patient tolerated the procedure well, and was taken to PACU in stable condition. Complications: none Post-operative Condition: stable Disposition: PACU Plan for aftercare: Home after recovery
[2023-04-27 13:08] VITALS: BP 106/63; PULSE 74; RESP 14; TEMP 36.2; O2SAT 95
[2023-04-27 13:13] VITALS: BP 117/64; PULSE 74; RESP 14; O2SAT 97
[2023-04-27 13:18] VITALS: BP 108/67; PULSE 64; RESP 12; RESP 14; TEMP 36.3; O2SAT 97
[2023-04-27 13:39] VITALS: BP 107/68; PULSE 55; RESP 14; TEMP 36.3; O2SAT 98
== END 2023-04-27 13:49 | disposition home or self-care (01) ==
PROVIDERS: Referring Provider Obstetrics & Gynecology; Visit Provider Obstetrics & Gynecology
PROC: (CPT 58120; principal; 2023-04-27 12:15)
DX: O02.1 Missed abortion (principal); Z3A.01 Less than 8 weeks gestation of pregnancy
CPT/HCPCS: 59820; J1100; J1885; J2405; J2704; J3010